=== PATIENT | male | born 1950 | race Caucasian/White ===

== ENCOUNTER → 2017-09-09 | Outpatient (CLI) | payer BC ==
[~2017-09-09] MED LIST: ALEVE 220MG220 MG PO; CLARITIN10 MG PO; DEXAMETHASONE; DILAUDID 2MG TAB2 MG PO; FLONASE NASAL S16 GM NS; NORCO 325 MG-51 TAB PO; PROVENTIL0.09 MG/A1 IH; SINGULAIR; SINGULAIR 110 MG/TAB PO; VALIUM5 MG PO; [UNRECOGNIZED DRUG - OTHER]
== END ==
LOC: COL.RAD 10:03
DX: C85.93 Non-Hodgkin lymphoma, unspecified, intra-abdominal lymph nodes (principal); K56.699 Other intestinal obstruction unspecified as to partial versus complete obstruction; R14.0 Abdominal distension (gaseous)

== ENCOUNTER → 2018-12-20 | Outpatient (CLI) | payer BC | LOC: COL.RAD 08:16 | DX: C82.03 Follicular lymphoma grade I, intra-abdominal lymph nodes (principal); M47.812 Spondylosis without myelopathy or radiculopathy, cervical region; I77.810 Thoracic aortic ectasia; J98.59 Other diseases of mediastinum, not elsewhere classified; J98.4 Other disorders of lung; Z98.890 Other specified postprocedural states | CPT/HCPCS: Q9967 ==

== ENCOUNTER → 2019-03-28 | Outpatient (CLI) | payer BC | LOC: COL.RAD 12:29 | DX: J32.9 Chronic sinusitis, unspecified (principal); J98.6 Disorders of diaphragm ==

== ENCOUNTER → 2019-06-21 | Outpatient (CLI) | payer BC | LOC: COL.RAD 09:08 | DX: C82.03 Follicular lymphoma grade I, intra-abdominal lymph nodes (principal); J98.6 Disorders of diaphragm; K76.89 Other specified diseases of liver; N28.1 Cyst of kidney, acquired; K57.30 Diverticulosis of large intestine without perforation or abscess without bleeding | CPT/HCPCS: Q9967 ==

== ENCOUNTER → 2019-12-19 | Outpatient (CLI) | payer BC | LOC: COL.RAD 06:48 | DX: C82.03 Follicular lymphoma grade I, intra-abdominal lymph nodes (principal); J98.4 Other disorders of lung | CPT/HCPCS: Q9967 ==